=== PATIENT | male | born 2000 | race Caucasian/White ===

== ENCOUNTER 2024-06-22 09:38 | Emergency (ER) | payer OTHER, SELFPAY ==
[2024-06-22 09:47] VITALS: BP 130/90
[2024-06-22 10:19] LABS: Urine Albumin 1+ (Neg - Trace); Urine Bilirubin Negative (Negative); Urine Character Clear (Clear); Urine Color Yellow; Urine Glucose Negative (Negative); Urine Ketone Negative (Negative); Urine Leukocyte Negative (Negative); Urine Nitrite Negative (Negative); Urine Occult Blood 2+ (Negative); Urine Specific Gravity 1.025 (<1.030); Urine Urobilinogen Negative (Neg - 1+)
[2024-06-22 10:34] LABS: ALT (SGPT) 69 U/L (0-50); AST (SGOT) 38 U/L (17-59); Albumin 4.5 g/dl (3.5-5.0); Alkaline Phosphatase 77 U/L (38-126); Blood Urea Nitrogen 16 mg/dl (9-20); Calcium 9.3 mg/dl (8.4-10.2); Carbon Dioxide 25 mmol/L (22-30); Chloride 102 mmol/L (98-107); Glucose 114 mg/dl (70-99); Lipase 80 U/L (23-300); Sodium 138 mmol/L (135-145); Total Bilirubin 1.2 mg/dl (0.2-1.3); Total Protein 7.4 g/dl (6.3-8.2); eGFR > 60.00
[2024-06-22 10:42] LABS: % Basophils 0.8 % (0-2); % Eosinophils 2.1 % (0-6); % Immature Granulocytes 0.3 % (0-0.5); % Lymphocytes 24.4 % (20.5-51.1); % Monocytes 10.1 % (1.7-9.3); % Neutrophils 62.3 % (42.2-75.2); Absolute Basophils 0.1 10^3/uL (0-0.2); Absolute Eosinophils 0.1 10^3/uL (0-0.7); Absolute Lymphocytes 1.5 10^3/uL (1.2-3.4); Absolute Monocytes 0.6 10^3/uL (0.1-0.6); Absolute Neutrophils 3.8 10^3/uL (1.4-6.5); Hematocrit 39.1 % (39.0-52.0); Hemoglobin 13.2 g/dL (13.0-18.0); Mean Corp Hgb Conc. 33.8 g/dL (33.0-37.0); Mean Corpuscular Hgb 29.1 pg (27.0-31.0); Mean Corpuscular Volume 86.3 fL (80.0-94.0); Mean Platelet Volume 9.9 fL (7.4-10.4); Nucleated Red Blood Cells % 0 % (-); Platelet Count 236 10^3/uL (130-400); Red Blood Cell Count 4.53 10^6/uL (4.70-6.10); Red Cell Dist. Width 12.1 % (11.5-14.5); White Blood Cell Count 6.1 10^3/uL (4.8-10.8)
--- NOTE | 2024-06-22 11:20 | ED.GENMED ---
History of Present Illness
General
Chief Complaint: Flank Pain
Source: patient
Exam Limitations: none
Time Seen by Provider: 06/22/24 11:02
Nursing documentation reviewed up to this point in time: agreed with
History of Present Illness
History of Present Illness:
23-year-old male presenting with acute onset right flank pain this morning associated with 1 episode of vomiting. Patient reports a few days of vague lower back pain which he attributed to a muscular strain. However�this morning when he arrived at
work around 9 AM he had acute onset right flank pain with some radiation into his right groin. He did vomit 1 time due to pain. Pain persisted for about an hour and has since improved but is still mild. Patient denies any urinary hesitancy,
frequency, or hematuria. No anorexia or changes in bowel habits. Patient denies any fever, chills. No chest pain or shortness of breath
Patient has no personal history of kidney stones. No recent travel or surgeries.
Review of Systems
Review of Systems
Allergies reviewed?: Yes
All Other Systems: ROS reviewed and negative except as documented in HPI and ROS
Phy Exam
Physical Exam
Physical Exam:
Vitals: Mildly hypertensive, otherwise vital signs stable. Afebrile
General: Patient is well appearing, no acute distress. Nontoxic appearing
Skin: Warm and dry, no rashes or lesions
Head: Normocephalic, atraumatic
Eyes: Sclera nonicteric. EOMs intact. No nystagmus.
Throat: Protecting airway
Neck: Normal ROM, no cervical spine tenderness, no meningismus
Cardiac: Regular rate and rhythm, no murmurs.
Pulm: Normal respiratory effort, no wheezes, rales, rhonchi heard on exam.
Abdomen: Abdomen soft. Very mild tenderness of right flank. Otherwise abdomen nontender to palpations. Specifically no tenderness McBurney's point. No CVA tender
Extremities: No evidence of cyanosis or edema palpable DP pulses bilaterally.
Neuro: AAOx3. Grossly intact.
Psychiatric: Normal affect.
Course
Orders/Labs/Results
Orders:
Orders
06/22/24 10:03
Complete Blood Count/With Diff Urgent
Comprehensive Metabolic Panel Urgent
Lipase Urgent
Urinalysis Reflex To Culture Urgent
Date Specimen was Collected: 06/22/24
Time Specimen was Collected: 09:51
Urine Microscopic Reflex Cult Urgent
06/22/24 11:16
Abdomen/Pelvis wo Contrast CT [CT Abd/pelvis Wo Iv Cont] Urgent
Comment:
Reason For Exam: Right flank pain
0.9% Sodium Chloride 1000 ml [Nss] 1,000 ml IV BOLUS
Ketorolac [Toradol] 15 mg IV NOW STA
06/22/24 12:54
Tamsulosin [Flomax] 0.4 mg PO NOW STA
Abnormal Lab Results
06/22/24
10:03
RBC 4.53 L 10^6/uL
(4.70-6.10)
Monocytes % 10.1 H %
(1.7-9.3)
Glucose 114 H mg/dl
(70-99)
ALT 69 H U/L
(0-50)
Ur Occult Blood Reflex 2+ A
(Negative)
Urine Albumin (Reflex) 1+ A
(Neg - Trace)
06/22/24 10:03
06/22/24 10:03
Vital Signs
Initial and Last Documented VS:
Initial Vital Signs
Temp Pulse Resp BP Pulse Ox
98.1 F 78 18 130/90 99
06/22/24 09:47 06/22/24 09:47 06/22/24 09:47 06/22/24 09:47 06/22/24 09:47
Last Documented Vital Signs
Temp Pulse Resp BP Pulse Ox
98.1 F 78 16 127/82 100
06/22/24 09:47 06/22/24 11:32 06/22/24 11:32 06/22/24 11:32 06/22/24 11:32
MDM/Problems Addressed
Differential Diagnosis Includes:
Not limited to: Nephrolithiasis, pyelonephritis, muscle strain/spasm, appendicitis, etc.
MDM/Problems Addressed:
23-year-old male with acute onset right flank pain associate with nausea and vomiting today. No fevers or urinary symptoms. No anorexia. Patient mildly hypertensive, otherwise stable vital signs. Physical exam as above. Patient overall
well-appearing, in no apparent distress. Symptoms much improved by my assessment. Abdomen is soft with no focal tenderness, specifically no tenderness McBurney's point. No CVA tenderness. Cardio/pulmonary assessment unremarkable. Basic labs
initiated in triage without any clinically significant abnormalities. Urinalysis pending. Symptoms most consistent with possible renal colic versus MSK etiology. Low suspicion for acute intra-abdominal infection given patient is afebrile with
benign abdominal exam and no leukocytosis. Will check noncontrast CT abdomen/pelvis.
Update: CT abdomen/pelvis shows 3 mm nonobstructing stone at right UVJ. This is likely contributing to patient's symptoms today. There was also note of some enlarged lymph nodes in right lower abdomen possibly mesenteric adenitis. UA shows no
evidence of urinary infection. Patient remains comfortable in ED. Feel stable for discharge home with Flomax, pain management, urology follow-up. He will follow-up with PCP, as well return precautions discussed. Patient comfortable with plan.
Chronic conditions affecting care:
N/A
Acute Exacerbation and/or Progression of Chronic Illness:
N/A
*Radiology
Radiology exam reviewed: preliminary read by ED provider and radiology read reviewed
*Pulse Oximetry
Patient hypoxic: no
*EKG
Interpreted by ED Provider?: NA
*Chin Strap Sewer Interpretation
Rate: Chin Strap Sewer- N/A
*Critical Care Note
Total Time (30-74mins, 75-104mins- exclusive of procedures): Not Applicable
Patient Management
Escalation/DeEscalation of care consider admission/obs:
Admit not indicated
ED Attending Note
-
Portions of this chart may have been created with voice recognition software.� Occasional wrong word or��sound alike� substitutions may have occurred due to the inherent limitations of voice recognition software.
Discharge Plan
Departure
Patient Disposition: Home (Routine Discharge)
Date of Disposition: 06/22/24
Time of Disposition: 12:52
Patient with high blood pressure during this ER visit?: No
Condition: Good
Covid-19: Not Applicable
Discharge Problem:
Right distal ureteral calculus
Instructions: Kidney Stones (DC), How to Strain Your Urine
Prescriptions:
New
ondansetron 4 mg tablet,disintegrating
4 mg PO Q8H PRN (Reason: nausea and vomiting) Qty: 7 0RF
tamsulosin [Flomax] 0.4 mg capsule
0.4 mg PO DAILY Qty: 14 0RF
oxycodone 5 mg tablet
5 mg PO Q6H PRN (Reason: Pain) Qty: 5 0RF
Referrals:
Toño Barth MD [Active] - Call in 1-3 days for appt
Brittani Alexander MD [Family Provider] -
Stand Alone Forms: Return to Work
Activity Restrictions/Additional Instructions:
RETURN TO THE EMERGENCY DEPARTMENT WITH ANY FEVERS, INTRACTABLE NAUSEA/VOMITING, INABILITY TO PRODUCE URINE, SEVERE ABDOMINAL PAIN, WORSENING IN CURRENT SYMPTOMS, OR ANY OTHER CONCERNS
-As discussed�your CT scan showed a small kidney stone which is likely causing your symptoms today. They also did make note of some enlarged lymph nodes in the right abdomen which may be from a viral illness. One of your liver function test was
mildly elevated today, as well. you should follow-up with your primary care to ensure this resolves.
-Your prescriptions have been sent to the pharmacy. You should take tamsulosin daily until you passed the stone. You can take Zofran every 8 hours as needed for nausea.
-For pain management you should take 600 mg of ibuprofen every 6-8 hours. For severe pain�you can take oxycodone which has been sent to your pharmacy. This may cause drowsiness you should not take prior to driving or working.
-Stay well-hydrated and strain your urine
-Follow-up with PCP and urology for further evaluation /management.
Monitor your symptoms closely and return to the emergency department with any acute worsening/new symptoms or any other concerns
Interventions
Interventions:
*Risk Screen - Suicide Last Done: 06/22/24 09:47
*General Assessment Last Done: 06/22/24 09:47
*Neglect/Abuse Screening Last Done: 06/22/24 11:25
*ED COVID-19 Vaccine History Last Done: 06/22/24 09:47
*Nursing Disposition Last Done: 06/22/24 13:41
CW-Wikiss-Bowpujdhxg Assessment Last Done: 06/22/24 11:25
ED-Male Genitourinary Assessment Last Done: 06/22/24 11:25
Discharge Date and Time
Discharge Date/Time: 06/22/24 13:42
Print Language: LIBYAN
[2024-06-22] MEDS: NSS 1000 IV (11:26)
[2024-06-22] MEDS: TORADOL 15 MG IV (11:27)
[2024-06-22 11:32] VITALS: BP 127/82
[2024-06-22 11:36] LABS: Urine Amorphous Seen; Urine Squamous Cell 0-2 /LPF (Few); Urine Urothelial Cell 0-2 /LPF (FEW)
[2024-06-22 11:37] LABS: Urine Red Blood Cell 0-2 /HPF (0-2); Urine White Cell 0-2 /HPF (0-5)
[2024-06-22] MEDS: FLOMAX 0.4 MG PO (13:11)
== END 2024-06-22 13:42 | disposition home or self-care (01) ==
LOC: EMR 09:38
PROVIDERS: EMERGENCY PHYSICIAN Student in an Organized Health Care Education/Training Program; FAMILY PHYSICIAN Internal Medicine
DX: N20.1 Calculus of ureter (principal); R59.9 Enlarged lymph nodes, unspecified
CPT/HCPCS: 99284; 96374; 96361; 74176; 80053; 81003; 81015; 83690; 85025